=== PATIENT | female | born 1945 | race Caucasian/White ===

== ENCOUNTER 2017-12-14 08:10 | Day surgery (SDC) | payer BC, MEDICARE ==
[2017-12-14] MEDS ORDERED: ROPIVACAINE 0.5 % 30 ML VIAL (11:35)
[2017-12-14] MEDS ORDERED: MIDAZOLAM 1 MG/ML 2 ML INJ (11:35)
[2017-12-14] MEDS ORDERED: FENTAnyl 50 MCG/ML VIAL IV (12:30)
[2017-12-14] MEDS ORDERED: HYDROmorphONE (0.2 MG/ML) 10ML SYG IV ×2 (12:30)
[2017-12-14] MEDS ORDERED: MEPERIDINE 25 MG INJ IV (12:30)
[2017-12-14] MEDS ORDERED: PROCHLORPERAZINE 10 MG INJ IV (12:30)
[2017-12-14] MEDS ORDERED: ONDANSETRON 4 MG INJ IV ×2 (12:30→15:00)
[2017-12-14] MEDS ORDERED: DIPHENHYDRAMINE 50 MG INJ IV (12:30)
[2017-12-14] MEDS ORDERED: PROPOFOL 20 ML (12:47)
[2017-12-14] MEDS ORDERED: SUCCINYLCHOLINE CHLORIDE 100 MG/5 ML SYG IV (12:47)
[2017-12-14] MEDS ORDERED: ROCURONIUM 50 MG INJ (12:47)
[2017-12-14] MEDS ORDERED: FENTAnyl 50 MCG/ML VIAL (12:52)
[2017-12-14] MEDS: ROPIVACAINE 0.5 % 30 ML VIAL (13:03)
[2017-12-14] MEDS: POLYMYXIN/BACITRACIN 1L IRRIG (13:03)
[2017-12-14] MEDS: POVIDONE IODINE 10% 28.4 GM OINT (13:03)
[2017-12-14] MEDS ORDERED: ONDANSETRON 4 MG INJ (13:06)
[2017-12-14] MEDS ORDERED: DEXAMETHASONE 4 MG/ML 1 ML INJ (13:06)
[2017-12-14] MEDS ORDERED: FAMOTIDINE 20 MG INJ (13:06)
[2017-12-14] MEDS ORDERED: ACETAMINOPHEN 1000MG/100ML IV 100 ML (13:40)
[2017-12-14] MEDS ORDERED: EPHEDrine SULFATE 50 MG/5 ML SYG (13:43)
[2017-12-14] MEDS ORDERED: SUGAMMADEX SODIUM 200 MG/2 ML VIAL IV (13:59)
[2017-12-14] MEDS ORDERED: CEFAZOLIN 1 GM INJ (14:14)
[2017-12-14] MEDS ORDERED: SOD CHLORIDE 0.9% 1,000 ML IV (14:40)
[2017-12-14] MEDS ORDERED: morphine 2 MG INJ IV (15:00)
[2017-12-14] MEDS ORDERED: OXYCODONE/ACETAMINOPHEN (5/325) TAB PO ×2 (15:00)
== END 2017-12-14 16:36 | disposition home or self-care (01) ==
LOC: SDS 08:10
DX: M20.22 Hallux rigidus, left foot (principal); E03.9 Hypothyroidism, unspecified
CPT/HCPCS: 28291; 73630-LT